=== PATIENT | female | born 1950 | race Caucasian/White ===

== ENCOUNTER 2019-01-23 17:48 | Emergency (ER) | payer BC, OTHER ==
[~2019-01-23] VITALS: Ht 170.2 cm; Wt 65.8 kg
[~2019-01-23 17:48] MED LIST: ASPI81TA31 PO; C,E,1CAP PO; CALC-883 PO; CITA40TA22 PO; FOLI1TAB16 PO; GABA600T PO; LAMO100T2 PO; MAGN250T10 PO; NICO-671 TP; OMEP20TA20 PO; QUET200T PO; THIA100T13 PO; TIZA4TAB4 PO; TRAZ-182 PO; VITA400C68 PO; [UNRECOGNIZED DRUG - REMARK]
--- NOTE | 2019-01-23 17:54 | NUR ---
PT A/OX4, ARRIVED TO THE ER IN PRIVATE VEHICLE DRIVEN BY DAUGHTER, ESCORTED INTO THE DEPARTMENT ON W/C. PT C/O R FOOT PAIN THAT STARTED 5 DAYS AGO AFTER SHE "TWISTED IT" AT HOME. PT STATES "THE R FOOT IS BROKEN" AND C/O PAIN THAT IS PROVOKED UPON MOVEMENT, ACHING IN QUALITY, DOES NOT RADIATE, 4/10, CONSTANT. ANKLE DOES NOT APPEAR EDEMATOUS AND NO DEFORMITY TO THE EXTREMITY NOTED. VSS. PT PRESENTS W/ A STRONG ETOH ODOR ON BREATH. PT DENIES C/P, SOB, N/V/D, DIZZINESS, HEADACHE. ER MD AT BEDSIDE FOR MSE.
[2019-01-23] MEDS: ACETAMINOPHEN ES 500 MG TABLET PO ONE (18:01)
[2019-01-23] MEDS ORDERED: ACETAMINOPHEN ES 500 MG TABLET ONE (18:02)
--- NOTE | 2019-01-23 18:09 | NUR ---
FUR WEIGHER AT BEDSIDE.
--- NOTE | 2019-01-23 18:25 | NUR ---
MARIE MAJOR AT BEDSIDE FOR PT UPDATE.
[2019-01-23] MEDS ORDERED: LORAZEPAM 2 MG/1 ML VIAL ONE (19:01)
[2019-01-23] MEDS: LORAZEPAM 2 MG/1 ML VIAL IM ONE (19:02)
--- NOTE | 2019-01-23 19:09 | NUR ---
Patient discharged to home in stable conditon. Written and verbal after care instructions given. Patient verbalizes understanding of instructions. ALL BELONGINGS W/ PT. PT ASSISTED OUT TO PRIVATE VEHICLE ON W/C. PT WILL BE DRIVEN HOME BY DAUGHTER IN PRIVATE VEHICLE.
[2019-01-23 19:10] VITALS: BP 126/66
== END 2019-01-23 19:11 | disposition home or self-care (01) ==
LOC: ER 17:48
DX: M79.671 Pain in right foot (principal); F17.200 Nicotine dependence, unspecified, uncomplicated; Z79.899 Other long term (current) drug therapy; X50.0XXA Overexertion from strenuous movement or load, initial encounter; Y93.89 Activity, other specified; Y92.89 Other specified places as the place of occurrence of the external cause; Y99.8 Other external cause status
CPT/HCPCS: 73630; 96372; 99283; J2060; A4663; A9150

== ENCOUNTER 2019-01-30 10:27 | Emergency (ER) | payer OTHER ==
[~2019-01-30] VITALS: Ht 170.2 cm; Wt 65.8 kg
--- NOTE | 2019-01-30 10:31 | NUR ---
PT IS IN ROOM #1B. DR BERRIOS EVALUATED THE PT.
[2019-01-30 11:14] LABS: BASOPHILS % (AUTO) 0.7 % (0.0-2.0); EOSINOPHILS # (AUTO) 0.1 K/uL (0.0-0.7); EOSINOPHILS % (AUTO) 1.4 % (0.0-7.0); HEMATOCRIT 39.8 % (31.2-41.9); HEMOGLOBIN 13.5 g/dL (10.9-14.3); LYMPHOCYTES # (AUTO) 2.6 K/uL (20.0-40.0); LYMPHOCYTES % (AUTO) 39.7 % (20.5-51.5); MEAN CORPUSCULAR HEMOGLOBIN 35.1 uug (24.7-32.8); MEAN CORPUSCULAR HGB CONC 34 g/dL (32.3-35.6); MONOCYTES # (AUTO) 0.5 K/uL (2.0-10.0); MONOCYTES % (AUTO) 8.5 % (0.0-11.0); NEUTROPHILS # (AUTO) 3.2 K/uL (1.8-8.9); NEUTROPHILS % (AUTO) 49.7 % (38.5-71.5); PLATELET COUNT (AUTO) 115 K/uL (179-408); RED BLOOD CELL COUNT(AUTO) 3.86 MIL/uL (3.63-4.92); WHITE BLOOD COUNT (AUTO) 6.5 K/uL (3.8-11.8)
[2019-01-30] MEDS ORDERED: IV NORMAL SALINE 1000 ML BAG IV ONE (11:15)
[2019-01-30] MEDS ORDERED: FOLIC ACID 5 MG/ML VIAL IV ONE ×2 (11:15→11:28)
[2019-01-30 11:23] LABS: CREATININE 0.5 mg/dL (0.6-1.3); POTASSIUM 3.7 mmol/L (3.5-5.1)
[2019-01-30 11:28] LABS: BILIRUBIN,DIRECT 0.2 mg/dL (0.0-0.2); BILIRUBIN,TOTAL 0.5 mg/dL (0.2-1.0); TOTAL PROTEIN, SERUM 7.6 g/dL (6.4-8.2)
[2019-01-30] MEDS ORDERED: ACETAMINOPHEN ES 500 MG TABLET PO ONE (13:45)
[2019-01-30] MEDS ORDERED: MAGNESIUM SULFATE 2 GM in IV DEXTROSE 5% 100 ML IV ONE (13:45)
[2019-01-30] MEDS ORDERED: ACETAMINOPHEN ES 500 MG TABLET ONE (13:52)
[2019-01-30] MEDS ORDERED: MAGNESIUM SULFATE/D5W 200 ML ONE (13:54)
[2019-01-30 15:30] LABS: *BILIRUBIN,URIN NEGATIVE (NEGATIVE); *BLOOD, URINE NEGATIVE (NEGATIVE); *CLARITY,URINE CLEAR (CLEAR); *COLOR,URINE YELLOW (YELLOW); UGLUCOSE NEGATIVE (NEGATIVE)
[2019-01-30 15:31] LABS: *KETONES,URINE NEGATIVE (NEGATIVE); *UROBILINOGEN,URINE 0.2 E.U./dl (NORMAL); LEUKOCYTE ESTERASE ,URINE NEGATIVE (NEGATIVE); NITRITE, URINE NEGATIVE (NEGATIVE)
[2019-01-30 15:36] LABS: BACTERIA,URINE NONE SEEN /HPF (NONE SEEN); RBC,URINE 0-3 /HPF (0-3); SQUAMOUS EPITHELIAL CELL,UR FEW /HPF (NONE SEEN); WBC,URINE 0-3 /HPF (0-3)
--- NOTE | 2019-01-30 17:10 | NUR ---
PT WAS D/C'd TO HOME. D/C INSYRUCTIONS GIVEN TO THE PT AND TO HER DOUGHTER.
[2019-01-30 17:12] VITALS: BP 134/78
== END 2019-01-30 17:13 | disposition home or self-care (01) ==
LOC: ER 10:29
DX: S00.531A Contusion of lip, initial encounter (principal); M25.531 Pain in right wrist; F10.10 Alcohol abuse, uncomplicated; D69.6 Thrombocytopenia, unspecified; E83.42 Hypomagnesemia; F17.210 Nicotine dependence, cigarettes, uncomplicated; Z79.82 Long term (current) use of aspirin; Z79.891 Long term (current) use of opiate analgesic; Z79.899 Other long term (current) drug therapy; W01.0XXA Fall on same level from slipping, tripping and stumbling without subsequent striking against object, initial encounter; Y93.89 Activity, other specified; Y92.89 Other specified places as the place of occurrence of the external cause; Y99.8 Other external cause status
CPT/HCPCS: 36415; 70450; 70486; 72125; 73110; 80048; 80076; 81001; 83690; 83735; 85025; 96365; 96375; 99284; J3475; J3490; A4663; A9150